=== PATIENT | female | born 1935 | race Caucasian/White ===

== ENCOUNTER 2020-12-25 16:12 | Emergency (ER) | payer MEDICARE ==
--- NOTE | 2020-12-25 16:23 | EDM.PDOC ---
ED HPI GENERAL MEDICAL PROBLEM - General Stated Complaint: ALLGERIC REACTION Time Seen by Provider: 12/25/20 16:19 Source of Information: Reports: Patient History Limitations: Reports: No Limitations - History of Present Illness INITIAL COMMENTS - FREE TEXT/NARRATIVE: 85-year-old female who reports that at approximately 3:30 PM today she was eating a mushmelon and she had acute onset of substernal/central chest pain that was a heavy pressure type pain seemed to radiate to her right chest and right upper quadrant and around to her back. It also radiated up into both shoulders and into her left neck. It was associated with nausea and vomiting and she had multiple episodes of vomiting with production of some pieces of the mushmelon. She also felt weak all over and was feeling somewhat short of breath. Really seem to make the pain better. The pain was worse with palpation in her upper abdomen. She presents to the emergency department via private vehicle with multiple family members. She had had no antecedent symptoms. She has been complaining of some upper back and left shoulder pain for quite some time and she has been seen for this and has been told that she has had bursitis. In addition, earlier today (between 12:30 and 1:30 PM), she and her had a steak dinner and she tolerated that well without any problems. She drank coffee after this and was swallowing normally and was completely asymptomatic until approximately 3:30 PM as above. She is currently rating her pain as a 10/10. She appears to be quite uncomfortable and she is having active emesis at present. No fever. No chills. No antecedent symptoms as mentioned above. There are no other associated signs or symptoms. There are no other modifying factors. Onset: Today (3:30 PM) Duration: Constant Location: Reports: Neck, Chest, Back Quality: Reports: Pressure Severity: Moderate (to severe) Improves with: Reports: None Worsens with: Reports: Other (Palpation) Context: Reports: Other (The above.) Associated Symptoms: Reports: No Other Symptoms (Except as above.) Treatments INCIDENT RESPONSE LEAD: Reports: Home Treatments (Baking soda with water. No relief.) Epigastric & Bi UQ Abdomen Pain Score (Numeric/FACES): 7 - Related Data Allergies Allergy/AdvReac Type Severity Reaction Status Date / Time iodine Allergy Severe ANAPHYLAXIS Verified 12/25/20 16:31 niacin Allergy Severe Hives Verified 12/25/20 16:31 BARLEY GRASS Allergy Severe ANAPHYLAXIS Uncoded 10/12/14 09:29 OATMEAL Allergy Severe ANAPHYLAXIS Uncoded 10/12/14 09:29 TUNA OIL Allergy Severe ANAPHYLAXIS Uncoded 10/12/14 09:29 Home Meds: Home Meds Albuterol Sulfate [Albuterol Sulfate HFA] 1 puff IH Q4HR PRN 09/06/14 [History] Albuterol/Ipratropium [DuoNeb 3.0-0.5 MG/3 ML] 3 ml INH BID PRN 09/06/14 [History] Ferrous Gluconate 324 mg PO DAILY 09/06/14 [History] Levothyroxine [Synthroid] 88 mcg PO ACBREAKFAST 09/06/14 [History] Mometasone/Formoterol [Dulera 200-5 MCG] 2 puff INH BIDRT 09/06/14 [History] Montelukast Sodium [Singulair] 10 mg PO BEDTIME 09/06/14 [History] Alendronate [Fosamax] 70 mg PO TU 09/08/15 [History] Fexofenadine/Pseudoephedrine [Elina-D 24 Hour Tablet] 1 tab PO DAILY 09/10/15 [History] LORazepam [Ativan] 1 mg PO BEDTIME PRN #15 tablet 09/12/15 [Rx] predniSONE See Taper PO DAILY #20 tablet 09/12/15 [Rx] Past Medical History HEENT History: Reports: Cataract Respiratory History: Reports: Asthma Musculoskeletal History: Reports: Back Pain, Chronic Endocrine/Metabolic History: Reports: Hypothyroidism - Past Surgical History HEENT Surgical History: Reports: Cataract Surgery GI Surgical History: Reports: Cholecystectomy Female Surgical History: Reports: Section Social & Family History - Tobacco Use Tobacco Use Status *Q: Unknown Ever Used Tobacco (Nonsmoker.) - Alcohol Use Alcohol Use History: No - Living Situation & Occupation Living situation: Reports: Occupation: Retired ED ROS GENERAL - Review of Systems Review Of Systems: See Below Constitutional: Denies: Fever, Chills HEENT: Denies: Throat Pain, Throat Swelling Respiratory: Denies: Shortness of Breath, Cough Cardiovascular: Reports: Chest Pain, Lightheadedness GI/Abdominal: Reports: Abdominal Pain, Nausea, Other : Denies: Frequency, Hematuria Musculoskeletal: Reports: Neck Pain, Shoulder Pain, Back Pain Skin: Denies: Diaphoresis, Rash Neurological: Reports: Weakness. Denies: Headache Hematologic/Lymphatic: Denies: Easy Bleeding, Easy Bruising Immunologic: Reports: Food Allergy, Environmental Allergy ED EXAM, GENERAL - Physical Exam Exam: See Below Exam Limited By: No Limitations General Appearance: Alert, Moderate Distress, Obese Eye Exam: Bilateral Eye: EOMI, Normal Inspection Ears: Normal External Exam, Hearing Loss (Chronically hard of hearing) Ear Exam: Bilateral Ear: Auricle Normal Nose: Normal Inspection, Normal Mucosa, No Blood Throat/Mouth: Normal Voice, No Airway Compromise Head: Atraumatic, Normocephalic Neck: Normal Inspection, Supple, Non-Tender, Full Range of Motion Respiratory/Chest: No Respiratory Distress, Lungs Clear, Normal Breath Sounds, No Accessory Muscle Use, Chest Non-Tender Cardiovascular: Normal Peripheral Pulses, No Edema, Tachycardia, Systolic Murmur (2-3/6) Peripheral Pulses: 2+: Radial (L), Radial (R) GI/Abdominal: Normal Bowel Sounds, Soft, No Mass, Tender (In epigastrium.). No: Guarding, Rigid Back Exam: Normal Inspection. No: CVA Tenderness (R), CVA Tenderness (L) Extremities: Normal Inspection, Normal Range of Motion, Non-Tender, No Pedal Edema, Normal Capillary Refill Neurological: Alert, Oriented, CN II-XII Intact, Normal Cognition, No Motor/Sensory Deficits Psychiatric: Normal Affect Skin Exam: Warm, Dry, Intact, No Rash, Pallor. No: Diaphoretic #1 Interpretation EKG Date: 12/25/20 Time: 16:16 Rhythm: NSR (Sinus tachycardia) Rate (Beats/Min): 105 [place]: Normal P-Wave: Present QRS: Other (LVH) ST-T: Other (Mild, nonspecific ST elevation that could be early repolarization. No STEMI pattern.) QT: Prolonged (Prolonged QTc.) Comparison: NA - No Prior EKG #2 Interpretation EKG Date: 12/25/20 Time: 16:46 Rhythm: NSR (Sinus tachycardia) Rate (Beats/Min): 104 [place]: Normal P-Wave: Present QRS: Other (LVH) ST-T: Other (Mild, nonspecific, diffuse ST segment elevation. No STEMI pattern.) QT: Prolonged (Prolonged QTc.) Comparison: No Change (No change from previous EKG today.) Course - Vital Signs Last Recorded V/S: Last Vital Signs Temp 35.6 C L 12/25/20 16:20 Pulse 103 H 12/25/20 19:20 Resp 17 12/25/20 19:20 BP 136/69 12/25/20 19:20 Pulse Ox 99 12/25/20 19:20 - Orders/Labs/Meds Orders: Active Orders 24 hr Category Date Time Status EKG Documentation Completion [RC] ASDIRECTED Care 12/25/20 16:30 Active EKG Documentation Completion [RC] ASDIRECTED Care 12/25/20 16:52 Active Chest 1V Frontal [CR] Stat Exams 12/25/20 16:29 Taken Chest wo Cont [CT] Stat Exams 12/25/20 17:29 Taken Sodium Chloride 0.9% [Normal Saline] 1,000 ml Med 12/25/20 16:45 Active IV ASDIRECTED Sodium Chloride 0.9% [Saline Flush] Med 12/25/20 16:29 Active 10 ml FLUSH ASDIRECTED PRN Peripheral IV Insertion Adult [OM.PC] Routine Oth 12/25/20 16:29 Ordered EKG 12 Lead [EK] Routine Ther 12/25/20 16:29 Ordered EKG 12 Lead [EK] Routine Ther 12/25/20 16:51 Ordered Medication Orders Sodium Chloride (Normal Saline) 1,000 mls @ 100 mls/hr IV ASDIRECTED FER Last Admin: 12/25/20 18:21 Dose: 100 mls/hr Documented by: AMAURI Sodium Chloride (Sodium Chloride 0.9% 10 Ml Syringe) 10 ml FLUSH ASDIRECTED PRN PRN Reason: Keep Vein Open Labs: Laboratory Tests 12/25/20 12/25/20 12/25/20 Range/Units 16:45 16:45 16:45 WBC 12.5 H (3.0-10.3) x10-3/uL RBC 4.98 (3.60-5.20) x10(6)uL Hgb 14.0 (11.4-15.5) g/dL Hct 43.0 (34.2-48.2) % MCV 86.3 (76.7-100.5) fL MCH 28.2 (23.9-33.9) pg MCHC 32.7 (31.9-34.8) g/dL RDW 13.7 (12.3-16.5) % Plt Count 287 (151-488) x10(3)uL MPV 8.9 (7.1-12.4) fL Neut % (Auto) 75.9 (30.8-76.2) % Lymph % (Auto) 15.3 L (18.4-52.1) % [place] % (Auto) 5.0 (4.4-15.7) % Eos % (Auto) 3.2 (0.6-8.1) % Baso % (Auto) 0.6 (0.2-1.5) % Neut # (Auto) 9.5 H (1.5-6.3) x10-3/uL Lymph # (Auto) 1.9 (1.0-4.4) x10-3/uL [place] # (Auto) 0.6 (0.3-1.0) x10-3/uL Eos # (Auto) 0.4 (0.0-0.8) x10-3/uL Baso # (Auto) 0.1 (0.0-0.1) x10-3/uL D-Dimer, Quantitative 0.87 H (0.0-0.59) mg/LFEU Sodium 138 (135-145) mmol/L Potassium 3.7 (3.5-5.3) mmol/L Chloride 97 L (100-110) mmol/L Carbon Dioxide 27 (21-32) mmol/L BUN 21 H (7-18) mg/dL Creatinine 1.0 (0.55-1.02) mg/dL Est Cr Clr Drug Dosing 30.62 mL/min Estimated GFR (MDRD) 53 L (>60) BUN/Creatinine Ratio 21.0 H (9-20) Glucose 207 H (80-116) mg/dL Calcium 9.7 (8.6-10.2) mg/dL Magnesium 1.8 (1.8-2.5) mg/dL Total Bilirubin 0.4 (0.1-1.3) mg/dL AST 17 (5-25) IU/L ALT 18 (12-36) U/L Alkaline Phosphatase 62 (56-112) IU/L Troponin I (4.0-60.3) pg/mL Total Protein 7.7 (6.0-8.0) g/dL Albumin 3.9 (3.2-4.6) g/dL Globulin 3.8 g/dL Albumin/Globulin Ratio 1.0 Lipase (73-393) U/L 12/25/20 12/25/20 Range/Units 16:45 18:50 WBC (3.0-10.3) x10-3/uL RBC (3.60-5.20) x10(6)uL Hgb (11.4-15.5) g/dL Hct (34.2-48.2) % MCV (76.7-100.5) fL MCH (23.9-33.9) pg MCHC (31.9-34.8) g/dL RDW (12.3-16.5) % Plt Count (151-488) x10(3)uL MPV (7.1-12.4) fL Neut % (Auto) (30.8-76.2) % Lymph % (Auto) (18.4-52.1) % [place] % (Auto) (4.4-15.7) % Eos % (Auto) (0.6-8.1) % Baso % (Auto) (0.2-1.5) % Neut # (Auto) (1.5-6.3) x10-3/uL Lymph # (Auto) (1.0-4.4) x10-3/uL [place] # (Auto) (0.3-1.0) x10-3/uL Eos # (Auto) (0.0-0.8) x10-3/uL Baso # (Auto) (0.0-0.1) x10-3/uL D-Dimer, Quantitative (0.0-0.59) mg/LFEU Sodium (135-145) mmol/L Potassium (3.5-5.3) mmol/L Chloride (100-110) mmol/L Carbon Dioxide (21-32) mmol/L BUN (7-18) mg/dL Creatinine (0.55-1.02) mg/dL Est Cr Clr Drug Dosing mL/min Estimated GFR (MDRD) (>60) BUN/Creatinine Ratio (9-20) Glucose (80-116) mg/dL Calcium (8.6-10.2) mg/dL Magnesium (1.8-2.5) mg/dL Total Bilirubin (0.1-1.3) mg/dL AST (5-25) IU/L ALT (12-36) U/L Alkaline Phosphatase (56-112) IU/L Troponin I 6.2 8.0 (4.0-60.3) pg/mL Total Protein (6.0-8.0) g/dL Albumin (3.2-4.6) g/dL Globulin g/dL Albumin/Globulin Ratio Lipase 67 L (73-393) U/L Meds: Medications Generic Name Dose Route Start Last Admin Trade Name Freq PRN Reason Stop Dose Admin Sodium Chloride 1,000 mls @ 100 mls/hr 12/25/20 16:45 12/25/20 18:21 Normal Saline IV 100 mls/hr ASDIRECTED FER Administration Sodium Chloride 10 ml 12/25/20 16:29 Sodium Chloride 0.9% 10 Ml Syringe FLUSH ASDIRECTED PRN Keep Vein Open Discontinued Medications Generic Name Dose Route Start Last Admin Trade Name Freq PRN Reason Stop Dose Admin Aspirin 324 mg 12/25/20 18:50 Aspirin 81 Mg Tab.Chew PO 12/25/20 18:51 ONETIME ONE Sodium Chloride 500 mls @ 999 mls/hr 12/25/20 16:31 12/25/20 16:47 Normal Saline IV 12/25/20 17:01 999 mls/hr .BOLUS ONE Administration Metoclopramide HCl 10 mg 12/25/20 18:41 Metoclopramide 10 Mg/2 Ml Sdv IVPUSH 12/25/20 18:42 ONETIME ONE Nitroglycerin 0.4 mg 12/25/20 16:48 12/25/20 18:20 Nitroglycerin 0.4 Mg Tab.Sl SL 0.4 mg Q5M PRN Administration Chest Pain Ondansetron HCl 4 mg 12/25/20 16:31 12/25/20 16:47 Ondansetron 4 Mg/2 Ml Sdv IVPUSH 12/25/20 16:32 4 mg ONETIME ONE Administration - Radiology Interpretation Free Text/Narrative:: Portable chest x-ray shows no acute abnormality per my read. CT of the chest showed a large hiatal hernia with mild bronchiectasis in the right upper lobe. There is a compression fracture of L1 vertebral body that is felt to be chronic. This is per the [facility] radiologist. - Re-Assessments/Exams Free Text/Narrative Re-Assessment/Exam: 12/25/20 17:05: The initial EKG showed no STEMI pattern. There were some no nspecific ST-T changes. A repeat EKG showed no STEMI pattern and no change from previous. Her initial troponin was normal. She is still having the pain in her central chest and she has pain across both of her shoulder area and upper back. She also is having some left-sided neck pain. It is improved but not gone. The D-dimer is slightly elevated. My concerns are that this still represents an acute coronary syndrome. It also could represent an aortic dissection. She was eating steak prior to this but had no problems while she was eating the steak and actually was able to drink coffee and swallow normally lowing eating the steak. Her symptoms did not begin until when she got home and she was eating the cantalope. She feels improved after the 2 sublingual nitroglycerin. I am awaiting the portable chest x-ray. 12/25/20 17:25: The portable chest x-ray showed no acute disease. Her symptoms are still present but improved. She is allergic to iodine and contrast dye. I will do a CT scan of the patient's chest without contrast to further assess the patient. I will continue close monitoring of the patient. 12/25/20 18:40: The CT scan of the chest without contrast shows a large hiatal hernia. There is also mild bronchiectasis in the right upper lobe and a chronic L1 compression fracture. She is still having pain in her central chest and it did improve with the last/third sublingual nitroglycerin. She is rating it as a 6/10 now. She appears to be much more comfortable than she did she arrived. I am still concerned about an acute coronary syndrome and I am repeating her troponin now. She does not appear to have an acute esophageal food impaction. The aorta is not dilated and there are no perivascular fluid collections. I am awaiting the results of the repeat troponin before making final decision but I do feel that she will need admission and there are no beds available at [facility]. I am also concerned that she will need specially cares which are not available at [facility] as well. I discussed all this with the patient and with her daughter. I will give the patient Reglan 10 mg IV now. I will also give the patient aspirin 324 mg by mouth. 12/25/20 19:25: The patient's repeat troponin was normal. The patient's pain is down to 4/10 and she is much more comfortable. I am still concerned about a possible acute coronary syndrome and it is still unclear why she is having the chest pain. I feel that she will need admission and there are no beds available at [facility]. I had previously discussed this with the patient and with her daughter who is the medical decision maker and they would prefer that I discuss the patient's case with the doctors at [facility] in [place] if transfer would be necessary. Therefore I will call and discuss the patient's case with the doctors at [facility] in [place]. 12/25/20 20:05: I discussed the patient's case with Dr. Burch, hospitalist at [facility] in [place], and she has agreed to accept the patient in transfer. The patient will need to be transferred via ALS ambulance service to [facility] for direct admission. I have discussed this with the patient and with the patient's daughter and they are in agreement with this plan. We will continue close monitoring of the patient. Departure - Departure Time of Disposition: 20:15 Disposition: DC/Tfer to Acute Hospital 02 Condition: Fair (Guarded) Clinical Impression: Hiatal hernia Chest pain Qualifiers: Chest pain type: unspecified Qualified Code(s): R07.9 - Chest pain, unspecified Vomiting Qualifiers: Vomiting type: unspecified Vomiting Intractability: non-intractable Nausea presence: with nausea Qualified Code(s): R11.2 - Nausea with vomiting, unspecified - Discharge Information Referrals: David Beltran MD [Primary Care Provider] - Sepsis Event Note (ED) - Focused Exam Vital Signs: Vital Signs Temp Pulse Resp BP BP Pulse Ox 12/25/20 19:20 103 H 17 136/69 99 12/25/20 18:31 109 H 17 127/67 97 12/25/20 18:20 137/78 12/25/20 17:44 103 H 14 142/81 H 98 12/25/20 17:29 107 H 20 126/73 98 12/25/20 17:17 101/63 12/25/20 17:05 149/78 H 12/25/20 16:20 35.6 C L 109 H 16 157/113 H 93 L - My Orders Last 24 Hours: My Active Orders 12/25/20 16:29 Chest 1V Frontal [CR] Stat Sodium Chloride 0.9% [Saline Flush] 10 ml FLUSH ASDIRECTED PRN Peripheral IV Insertion Adult [OM.PC] Routine EKG 12 Lead [EK] Routine 12/25/20 16:30 EKG Documentation Completion [RC] ASDIRECTED 12/25/20 16:45 Sodium Chloride 0.9% [Normal Saline] 1,000 ml IV ASDIRECTED 12/25/20 16:51 EKG 12 Lead [EK] Routine 12/25/20 16:52 EKG Documentation Completion [RC] ASDIRECTED 12/25/20 17:29 Chest wo Cont [CT] Stat - Assessment/Plan Last 24 Hours: My Active Orders 12/25/20 16:29 Chest 1V Frontal [CR] Stat Sodium Chloride 0.9% [Saline Flush] 10 ml FLUSH ASDIRECTED PRN Peripheral IV Insertion Adult [OM.PC] Routine EKG 12 Lead [EK] Routine 12/25/20 16:30 EKG Documentation Completion [RC] ASDIRECTED 12/25/20 16:45 Sodium Chloride 0.9% [Normal Saline] 1,000 ml IV ASDIRECTED 12/25/20 16:51 EKG 12 Lead [EK] Routine 12/25/20 16:52 EKG Documentation Completion [RC] ASDIRECTED 12/25/20 17:29 Chest wo Cont [CT] Stat
[2020-12-25] MEDS ORDERED: Sodium Chloride 0.9% 10 ML Syringe FLUSH PRN (16:29)
[2020-12-25] MEDS ORDERED: Sodium Chloride 0.9% 500 ML IV ONE (16:31)
[2020-12-25] MEDS ORDERED: Ondansetron 4 MG/2 ML SDV IVPUSH ONE (16:31)
[2020-12-25] MEDS: Sodium Chloride 0.9% 1,000 ML IV SCH ×2 (16:46→18:21)
[2020-12-25] MEDS: Nitroglycerin 0.4 MG Tab.SL SL PRN ×3 (17:05→18:20)
[2020-12-25] MEDS ORDERED: Metoclopramide 10 MG/2 ML SDV IVPUSH ONE (18:41)
[2020-12-25] MEDS ORDERED: Aspirin 81 MG Tab.Chew PO ONE (18:50)
[2020-12-25 19:21] VITALS: BP 136/69; PULSE 103
--- NOTE | 2020-12-26 12:36 | CR ---
INDICATION: Epigastric pain. CHEST ONE VIEW: An AP upright portable view of the chest was obtained 12/25/20 and revealed a rather large fixed hiatal hernia with air-fluid level. Heart size is difficult to evaluate but may be somewhat enlarged. The aorta is tortuous with calcification in the arch. Overlying EKG leads are noted. Previous rib fracture. Previous rib fracture which appears healed on the right posterolaterally noted. A definite active infiltrate or effusion was not identified. IMPRESSION: 1. Large fixed hiatal hernia with air-fluid level. 2. ASD aorta. MTDD
== END 2020-12-25 21:04 ==
LOC: FB.ED 16:12
DX: R07.2 Precordial pain (principal); R07.89 Other chest pain; R11.2 Nausea with vomiting, unspecified; K44.9 Diaphragmatic hernia without obstruction or gangrene; E03.9 Hypothyroidism, unspecified; Z91.013 Allergy to seafood; Z91.048 Other nonmedicinal substance allergy status; Z91.041 Radiographic dye allergy status; Z88.3 Allergy status to other anti-infective agents; Z79.899 Other long term (current) drug therapy
CPT/HCPCS: 36415; 71045; 71250; 80053; 83690; 83735; 84484; 85025; 85379; 93005; 93010; 96374; 99285; 99285-25; A9270-GY; J2405; J7030; J7040